=== PATIENT | male | born 1975 | race American Indian/Alaskan Native ===

== ENCOUNTER 2019-11-23 12:43 | Emergency (ER) | payer SELFPAY ==
[2019-11-23 12:48] VITALS: BP 121/79; PULSE 96; RESP 18; TEMP 36.4; O2SAT 100; BMI 27.9
[2019-11-23 14:19] VITALS: BP 133/86; PULSE 88; O2SAT 100
--- NOTE | 2019-11-23 14:36 | ED_ITS ---
HPI - Skin/Abscess/Foreign Bdy <TRUE Arambula - Last Filed: 11/23/19 14:42> General Chief complaint: Skin/Abscess/Foreign Body Stated complaint: Spider Bite Lt Butt Cheek Time Seen by Provider: 11/23/19 13:46 Source: patient Mode of arrival: Ambulatory Limitations: no limitations History of Present Illness HPI narrative: The patient is a 44-year-old male current smoker with history of IV drug use call methamphetamine use and heroin use who presents with a chief complaint of a spider bite to his left glute. He states that happened 4 days ago. He states yesterday he started draining pus, and denies any fevers nausea vomiting or diarrhea. He states it feels consistent with previous abscess. He would like antibiotics to help prevent ?blood poisoning. Related Data Previous Rx's Medication Instructions Recorded cephalexin 500 mg PO QID 10 Days #40 cap 11/23/19 sulfamethoxazole-trimethoprim 1 tab PO BID 10 Days #20 tab 11/23/19 [Bactrim DS] Allergies Allergy/AdvReac Type Severity Reaction Status Date / Time carisoprodol [From [facility]] Allergy Verified 11/23/19 12:52 Review of Systems <TRUE Arambula - Last Filed: 11/23/19 14:42> Review of Systems Narrative: GENERAL: Denies chills, fatigue, malaise, fever, sweats. HEENT: Denies sinus pain, ear pain, sore throat, difficulty swallowing, dizziness. RESPIRATORY: Denies dyspnea, cough, wheezing, hemoptysis, sputum. CARDIOVASCULAR: Denies chest pain, palpitations, orthopnea, edema, GASTROINTESTINAL: Denies nausea, vomiting, abdominal pain, diarrhea, constipation, melena. : Denies dysuria, frequency, incontinence, hematuria, urinary retention. MUSCULOSKELETAL: denies weakness, joint pain, or bony pain SKIN: See HPI NEUROLOGIC: Denies weakness, headache, numbness, change in speech, confusion, seizures, incoordination. PSYCHIATRIC: No concerning psychosocial issues. 12 point review of systems is negative except for those stated above Patient History <TRUE Arambula - Last Filed: 11/23/19 14:42> Social History Smoking Status: Current every day smoker Smoking Status: Current every day smoker alcohol intake frequency: 0-2 drinks per day Substance Use Type: marijuana and methamphetamine Exam <Saige Donnellyisrael TALLIER-BC - Last Filed: 11/23/19 14:42> Narrative Exam Narrative: GENERAL: This is a well-nourished, well-developed patient, in no acute distress HEAD: Atraumatic. Normocephalic. No temporal or scalp tenderness. EYES: Pupils equal round and reactive. Extraocular motions intact. No scleral icterus. No injection or drainage. ENT: Nose without bleeding, purulent drainage or septal hematoma. Throat without erythema, tonsillar hypertrophy or exudate. Uvula midline. Airway patent. NECK: Trachea midline. No JVD or lymphadenopathy. Supple, nontender, no meningeal signs. CARDIOVASCULAR: Regular rate and rhythm RESPIRATORY: Clear to auscultation. Breath sounds equal bilaterally. No wheezes, rales, or rhonchi. No cough. No increased respiratory effort. No accessory muscle use. GASTROINTESTINAL: Abdomen soft, non-tender, nondistended. No hepato-s plenomegaly, or palpable masses. No guarding. BACK: Nontender without deformity or crepitance. No flank tenderness. NEURO: AOx3. SKIN: 4x 4 cm abscess noted left upper glut with purulent drainage noted. Culture obtained. Initial Vital Signs Initial Vital Signs: Vital Signs Temperature 97.6 F 11/23/19 12:48 Pulse Rate 96 H 11/23/19 12:48 Respiratory Rate 18 11/23/19 12:48 Blood Pressure 121/79 11/23/19 12:48 Pulse Oximetry 100 11/23/19 12:48 <Pollo Barros MD - Last Filed: 11/25/19 08:19> Initial Vital Signs Initial Vital Signs: Vital Signs Temperature 97.6 F 11/23/19 12:48 Pulse Rate 96 H 11/23/19 12:48 Respiratory Rate 11/23/19 12:48 Blood Pressure 121/79 11/23/19 12:48 Pulse Oximetry 100 11/23/19 12:48 <Shantel West DO - Last Filed: 11/27/19 07:07> Initial Vital Signs Initial Vital Signs: Vital Signs Temperature 97.6 F 11/23/19 12:48 Pulse Rate 96 H 11/23/19 12:48 Respiratory Rate 18 11/23/19 12:48 Blood Pressure 121/79 11/23/19 12:48 Pulse Oximetry 100 11/23/19 12:48 Course <TRUE Arambula - Last Filed: 11/23/19 14:42> Orders Ordered: ED Orders 11/23/19 14:05 Wound Culture and Gram Stain Stat Vital Signs Vital signs: Vital Signs - 8 hr 11/23/19 12:48 11/23/19 14:19 Temperature 97.6 F Pulse Rate 96 H 88 Respiratory Rate 18 Blood Pressure 121/79 133/86 Pulse Oximetry 100 100 <Pollo Barros MD - Last Filed: 11/25/19 08:19> Orders Ordered: ED Orders 11/23/19 14:05 Wound Culture and Gram Stain Stat Vital Signs Vital signs: Vital Signs - 8 hr 11/23/19 12:48 11/23/19 14:19 Temperature 97.6 F Pulse Rate 96 H 88 Respiratory Rate 18 Blood Pressure 121/79 133/86 Pulse Oximetry 100 100 <Shantel West DO - Last Filed: 11/27/19 07:07> Orders Ordered: ED Orders 11/23/19 14:05 Wound Culture and Gram Stain Stat Vital Signs Vital signs: Vital Signs - 8 hr 11/23/19 12:48 11/23/19 14:19 Temperature 97.6 F Pulse Rate 96 H 88 Respiratory Rate 18 Blood Pressure 121/79 133/86 Pulse Oximetry 100 100 MDM - Skin/Abscess/Foreign Bdy <TRUE Arambula - Last Filed: 11/23/19 14:42> Differential Diagnosis Differential diagnosis: Likely abscess of skin or subcutaneous tissue MDM Narrative Medical decision making narrative: The patient is a 44-year-old male who presents with an abscess. It is actively draining, drain several cc during his stay in the emergency department. Cultures obtained. I discussed with patient that I and D and a vaccinated drainage, patient wants to hold off on that today. Will start patient on Keflex as well as Bactrim given his IV drug use. The p atient appears well, appears nontoxic in the emergency department. Discussed at length monitoring for signs and symptoms of systemic illness such as fever etcetera. Discussed with these return precautions. Encouraged follow-up with primary care provider. Patient declined I and D again stating he will use warm packs etcetera to help facilitate drainage. Patient has no question or concerns upon discharge and states understanding of return precautions as well as follow- up care. <Pollo Barros MD - Last Filed: 11/25/19 08:19> [facility] Narrative Medical decision making narrative: Addendum Flight 2019, laboratory culture results sent. Positive for MRSA. Resistant to Keflex and Bactrim. Patient needs to be placed on doxycycline which is sensitive. Called phone number listed patient's desired contact number and left a voicemail to call us to review. MD Papo will need to hear back from patient to verify pharmacy of his choice Discharge Plan Departure Patient Disposition: Home Clinical Impression: Abscess of skin or subcutaneous tissue Qualifiers: Site of cutaneous abscess: buttock Qualified Code(s): L02.31 - Cutaneous abscess of buttock Discharge Date/Time: 11/23/19 14:22 Instructions: DI for Skin Abscess Activity Restrictions/Additional Instructions: Thank you for trusting us with your care today As I discussed, I sent prescriptions of 2 different antibiotics to [facility] Please continue to use warm packs to expedite drainage Please come back to the emergency department for any acute concerns. Please monitor for signs of systemic illness such as high fever etcetera Please take the antibiotics with a probiotic or yogurt Please come back to emergency department for any acute concerns. Please follow- up with primary care provider as well. 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 Prescriptions: New sulfamethoxazole-trimethoprim [Bactrim DS] 800-160 mg tablet 1 tab PO BID 10 Days Qty: 20 RF: 0 cephalexin 500 mg capsule 500 mg PO QID 10 Days Qty: 40 RF: 0 Referrals: [facility] [Outside] <Shantel West DO - Last Filed: 11/27/19 07:07> Cosign ED Attending Cossherryature Attestation: I was immediately available in the department for consultation. Documentation has been reviewed. I agree with assessment and plan.
== END 2019-11-23 14:22 | disposition home or self-care (01) ==
PROVIDERS: Emergency Provider Nurse Practitioner Family
DX: L02.31 Cutaneous abscess of buttock (principal)
CPT/HCPCS: 87070; 87075; 87077; 87147; 87186; 87205; 99282

== ENCOUNTER → 2021-08-18 14:17 | Outpatient (CLI) | payer MEDICAID, OTHER, SELFPAY ==
--- NOTE | 2021-08-18 14:22 | DI.US.S_ITS ---
PROCEDURE: US ABDOMEN LIMITED INDICATIONS: Unspecified viral hepatitis C without hepatic coma TECHNIQUE: Real-time focused scanning was performed of the abdomen, with image documentation. COMPARISON: None. FINDINGS: The liver is normal in size and echotexture, without focal lesion. The gallbladder is free of calculus or sludge, and has a normal wall thickness. The common bile duct and common hepatic duct are somewhat poorly visualized due to body habitus but show no evidence of dilatation. The pancreas could not be seen. IMPRESSION: Normal limited abdominal ultrasound in this patient with reported chronic hepatitis C. Dictated by: Cristo Fernandez M.D. on 08/20/2021 at 1:33 Approved by: Cristo Fernandez M.D. on 08/20/2021 at 1:34
== END ==
PROVIDERS: PCP Physician Assistant; Referring Provider Physician Assistant; Visit Provider Physician Assistant
DX: B19.20 Unspecified viral hepatitis C without hepatic coma (principal)
CPT/HCPCS: 76705

== ENCOUNTER → 2024-08-07 09:01 | Outpatient (CLI) | payer OTHER, SELFPAY ==
[2024-08-10 16:11] LABS: Interpretation Positive (Negative)
== END ==
PROVIDERS: PCP Nurse Practitioner Family; Referring Provider Nurse Practitioner Family; Visit Provider Nurse Practitioner Family
DX: K21.9 Gastro-esophageal reflux disease without esophagitis (principal)
CPT/HCPCS: 83013